=== PATIENT | male | born 1995 ===

== ENCOUNTER 2021-02-10 07:03 | Outpatient (CLI) | payer OTHER ==
[2021-02-10] VITALS (7 sets, daily range): BP systolic 105–141; BP diastolic 62–94; PULSE 56–79; TEMP 98.3
[~2021-02-10] VITALS: Ht 185.4 cm; Wt 84.0 kg
[~2021-02-10 07:03] MED LIST: PRINIVIL2.5 MG PO
[2021-02-10 09:26] LABS: GLUCOSE,CSF 56 mg/dL (40-70)
[2021-02-10 09:30] LABS: CSF APPEARANCE CLEAR; CSF COLOR COLORLESS; CSF RBC < 1 /mm3 (0-0)
--- NOTE | 2021-02-10 09:30 | NUR ---
Discharge instructions given to pt.Pt verbalizes understanding.Pt escorted out by this nurse.
[2021-02-10 09:46] LABS: CSF MONONUCLEAR 100 % (70-100); CSF POLYMORPHONUCLEAR 0 % (0-6)
[2021-02-16 12:53] LABS: ALBUMIN CSF 41.6 mg/dL (<=27.0); ALBUMUN SERUM 4500 mg/dL (())
[2021-02-16 13:33] LABS: CSF IGG/ALBUMIN 0.14 (<=0.21); CSF,IGG 5.7 mg/dL (<=8.1)
[2021-02-16 13:53] LABS: CSF SYNTHESIS RATE 5.16 mg/24 h (<=12); CSF-IGG INDEX 0.58 (<=0.85); IGG,SERUM 1070 mg/dL (()); IGG/ALBUMIN SERUM 0.24 (<=0.40)
[2021-02-16 14:02] LABS: CSF OLIG BD INTERPRETATION 0 bands (<2); SE OLIGOCLONAL BANDING 2 bands (())
== END 2021-02-10 09:33 ==
LOC: COL.RAD 07:03
PROVIDERS: Psychiatry & Neurology Neurology
DX: G93.2 Benign intracranial hypertension (principal)